=== PATIENT | female | born 1940 ===

== ENCOUNTER 2016-07-31 14:09 | Emergency (ER) | payer MEDICARE ==
[2016-07-31 14:27] VITALS: RESP 20; TEMP 100.3; O2SAT 98
[2016-07-31] MEDS ORDERED: Albuterol-Ipratrop 3 mg / 0.5 (3 ml) UD INH STA ×2 (14:44→16:59)
[2016-07-31] MEDS ORDERED: Albuterol-Ipratrop 3 mg / 0.5 (3 ml) UD ONE (15:00)
--- NOTE | 2016-07-31 15:03 | ED PDOC ---
HPI: SOB/CHF/COPD Chief Complaint (Provider): Shortness of Breath History Per: Patient History/Exam Limitations: no limitations Onset/Duration Of Symptoms: Days, Worse Since (this morning) Current Symptoms Are (Timing): Still Present Current Respiratory Medications: Albuterol, Prednisone (just finished) Associated Symptoms: Chills, Productive Cough. denies: Fever, Chest Pain, Bloody Cough, Heart Racing, Dizziness, Light-headedness, Tingling In Hands Or Face Additional History Per: Patient - Risk Factors PE Risk Factors: Neg: Extremity Immobilization/Fx, Decreased Mobilty /Activity, Recent Major Surgery, Recent Hospitalization, Active Cancer, Previous DVT, Previous PE, CHF <Elena Casper - Last Filed: 07/31/16 17:01> <Laura Amin - Last Filed: 07/31/16 19:17> Time Seen by Provider: 07/31/16 14:32 Chief Complaint (Nursing): Shortness Of Breath Additional Complaint(s): 75 yo F with hx of asthma and chronic cough here with c/o SOB and worsening cough x 1 day. Pt reports being on "multiple pumps" for both prn and maintenance of her asthma. Pt's PMD and validation technician is Dr. Goncalves, whom she saw in his office 1 week ago due to increased cough, at which time she was given Medrol dose pack which she recently finished. Denies chest pain. Productive cough with yellow sputum and SOB not responsive to home albuterol inhaler use. Also c/o associated loose stools x 3 days and chills. Pt denies headache, dizziness, abdominal pain, N/V or any urinary symptoms. ( Elena Casper) Supervising Attending Note - Supervising Attending Note The Documented history was done by the: Physician Sharepoint Manager, Attending Physician The documented physical exam was done by the: Physician Sharepoint Manager, Attending Physician The documented procedures were done by the: Physician Sharepoint Manager, Attending Physician - Attestation: I have personally seen and examined this patient.: Yes I have fully participated in the care of the patient.: Yes I have reviewed all pertinent clinical information, including history, physical exam and plan: Yes <Laura Amin - Last Filed: 07/31/16 19:17> Past Medical History Reviewed: Historical Data, Nursing Documentation, Vital Signs - Medical History PMH: Asthma - Family History Family History: States: Unknown Family Hx <Elena Casper - Last Filed: 07/31/16 17:01> <StanleyLaura beth Alejo - Last Filed: 07/31/16 19:17> Vital Signs: Last Vital Signs Temp 100.3 F H 07/31/16 14:24 Pulse 86 07/31/16 18:58 Resp 20 07/31/16 14:24 BP 130/82 07/31/16 18:58 Pulse Ox 98 07/31/16 18:58 - Home Medications Home Medications: Ambulatory Orders Medication Instructions Recorded Oseltamivir [Tamiflu] 75 mg PO BID #10 cap 07/31/16 Promethazine/Codeine 5 ml PO Q6 PRN #100 ml 07/31/16 [Phenergan/Codeine Oral Syrup] - Allergies Allergies/Adverse Reactions: Allergies Allergy/AdvReac Type Severity Reaction Status Date / Time No Known Allergies Allergy Verified 07/31/16 14:24 Curb-65 Severity Score - CURB-65 Severity Score Confusion: No Respiratory Rate greater than/equal to 30: No Systolic BP <90 or Diastolic BP less than/equal 60mmHg: No Age >64: Yes Curb-65 Score: 1 Percentage 30-day mortality: 2.7% <Elena Casper - Last Filed: 07/31/16 17:01> Wells Criteria for PE - Wells Criteria for Pulmonary Embolism Clinical Signs and Symptoms of DVT: No P.E is #1 Diagnosis, or Equally Likely: No Heart Rate >100: Yes Immobilization at least 3 days;Surgery previous 4 weeks: No Previous, objectively diagnosed PE or DVT: No Hemoptysis: No Malignancy w/treatment within 6 months, or palliative: No Total Score: 1.5 <Elena Casper - Last Filed: 07/31/16 17:01> Review of Systems Constitutional: Positive for: Chills. Negative for: Fever Cardiovascular: Negative for: Chest Pain, Palpitations, Orthopnea, Light Headedness Respiratory: Positive for: Cough, Shortness of Breath, Sputum, Wheezing. Negative for: Hemoptysis Gastrointestinal: Positive for: Diarrhea (loose stools x 3 days). Negative for : Nausea, Vomiting, Abdominal Pain, Constipation Genitourinary Female: Negative for: Dysuria, Frequency, Hematuria Musculoskeletal: Negative for: Neck Pain Skin: Negative for: Rash Neurological: Negative for: Weakness, Numbness, Confusion, Headache, Dizziness <Elena Casper - Last Filed: 07/31/16 17:01> Physical Exam - Reviewed Nursing Documentation Reviewed: Yes Vital Signs Reviewed: Yes - Physical Exam Appears: Positive for: Uncomfortable Head Exam: Positive for: NORMAL INSPECTION Skin: Positive for: Normal Color, Warm, Dry Eye Exam: Positive for: Normal appearance Cardiovascular/Chest: Positive for: Tachycardia. Negative for: Gallop, Murmur Respiratory: Positive for: Decreased Breath Sounds, Accessory Muscle Use, Rhonchi, Wheezing (mild, diffuse). Negative for: Crackles, Rales, Stridor, Respiratory Distress, Plerual Rub Gastrointestinal/Abdominal: Positive for: Bowel Sounds (normal throughout), Soft. Negative for: Tenderness, Guarding, Rebound Extremity: Positive for: Capillary Refill (< 2 sec). Negative for: Pedal Edema , Calf Tenderness Neurologic/Psych: Positive for: Alert, Oriented <Elena Casper - Last Filed: 07/31/16 17:01> - Laboratory Results Result Diagrams: 07/31/16 14:00 07/31/16 14:00 - ECG ECG: Positive for: Interpreted By Me, Viewed By Me ECG Rhythm: Positive for: Normal QRS, Normal ST Segment, Sinus Rhythm. Negative for: ST/T Changes, Nonspecific Changes Rate: 89 O2 Sat by Pulse Oximetry: 98 <Elena Casper - Last Filed: 07/31/16 17:01> - Laboratory Results Result Diagrams: 07/31/16 14:00 07/31/16 14:00 - Radiology X-Ray: Viewed By Me, Read By Radiologist X-Ray Interpretation: No Acute Disease - Progress Re-evaluation Time: 18:44 Condition: Re-examined, Improved <Laura Amin - Last Filed: 07/31/16 19:17> - Progress ED Course And Treament: CBC CMP CXR Rapid Flu Duoneb Solumedrol 125mg IV x 1 1600 Labs wnl Flu pending Reeval at 1700 Symptom improvement. Pt breathing comfortably with no accessary muscle use. Lung exam: improved, but still somewhat decreased breath sounds with mild diffuse wheezing and rhonchi Repeat Duoneb CXR normal Flu pending (Elena Casper) Nebulizer Treatments/Peak Flow - Duonebs Number of Bronchodilator Doses given?: 2 - Steroid Treatment Steroid: IV - Clinical Response Clinical Response: Improved <Laura Amin - Last Filed: 07/31/16 19:17> Disposition - Disposition Disposition Time: 17:03 Patient Signed Over To: Laura Amin Handoff Comments: Labs and CXR wnl. Flu pending. 2nd Duoneb being given now <Elena Casper - Last Filed: 07/31/16 17:01> - Patient ED Disposition Is Patient to be Admitted: No Doctor Will See Patient In The: Office Counseled Patient/Family Regarding: Studies Performed, Diagnosis, Need For Followup - Disposition Disposition: Routine/Home Disposition Time: 18:45 <Laura Amin - Last Filed: 07/31/16 19:17> - Clinical Impression Clinical Impression: Asthma exacerbation, Influenza A - Disposition Referrals: Mehul Goncalves MD [Family Provider] - Condition: GOOD Additional Instructions: Follow up with your PCP in 2-3 days. Take medications as instructed. Prescriptions: Promethazine/Codeine [Phenergan/Codeine Oral Syrup] 5 ml PO Q6 PRN #100 ml PRN Reason: Cough Oseltamivir [Tamiflu] 75 mg PO BID #10 cap Instructions: Influenza (ED), Asthma (ED)
[2016-07-31 16:11] LABS: ALB/GLOB RATIO 1.2 (1.0-2.1); ALKALINE PHOSPHATASE 61 U/L (38-126); ALT/SGPT 39 U/L (9-52); AST/SGOT 23 U/L (14-36); BILIRUBIN,TOTAL 0.5 mg/dl (0.2-1.3); BLOOD UREA NITROGEN 11 mg/dl (7-17); CARBON DIOXIDE 23 mmol/L (22-30); CHLORIDE 99 mmol/L (98-107); GFR AFRICAN-AMERICAN > 60; GLUCOSE,RANDOM 89 mg/dL (65-105); SODIUM 132 mmol/l (132-148); TOTAL PROTEIN 7.1 G/DL (6.3-8.2)
[2016-07-31 16:19] LABS: BASO % 0.6 % (0.0-2.0); EOS % 0.4 % (0.0-4.0); HEMATOCRIT 36.3 % (34.0-47.0); LYMPH # 0.2 K/uL (1.0-4.3); LYMPH % 3.2 % (20.0-40.0); MEAN CELL VOLUME 92.4 fl (81.0-99.0); MEAN CORPUSCULAR HEMOGLOBIN 30.6 pg (27.0-31.0); MEAN CORPUSCULAR HGB CONC 33.1 g/dL (33.0-37.0); MEAN PLATELET VOLUME 7.9 fl (7.2-11.7); MONO # 0.9 K/uL (0.0-0.8); MONO % 17.5 % (0.0-10.0); NEUT # 4.1 K/uL (1.8-7.0); NEUT % 78.3 % (50.0-75.0); NRBC % 0.3 % (0.0-0.0); PLATELET COUNT 209 K/uL (130-400); RED CELL DISTRIBUTION WIDTH 13.5 % (11.5-14.5); WHITE BLOOD COUNT 5.3 K/uL (4.8-10.8)
--- NOTE | 2016-07-31 16:32 | RAD ---
HISTORY: SOB COMPARISON: No prior. TECHNIQUE: Chest PA and lateral FINDINGS: LUNGS: No active pulmonary disease. PLEURA: No significant pleural effusion identified. No pneumothorax apparent. CARDIOVASCULAR: Normal. OSSEOUS STRUCTURES: No significant abnormalities. VISUALIZED UPPER ABDOMEN: Normal. OTHER FINDINGS: None. IMPRESSION: No active disease.
[2016-07-31 17:24] LABS: EOSINOPHIL 1 % (0-7); NEUTROPHIL 81 % (42-75); TOTAL CELLS COUNTED 100
[2016-07-31 19:01] VITALS: BP 130/82; PULSE 86
--- NOTE | 2016-08-01 07:17 | CARD ---
APPROVED REPORT EKG Measurement Heart [id number] <Conclusion> Normal sinus rhythm Normal ECG
== END 2016-07-31 18:56 | disposition home or self-care (01) ==
LOC: H.ER 14:09
DX: J45.901 Unspecified asthma with (acute) exacerbation (principal); R06.02 Shortness of breath; J10.1 Influenza due to other identified influenza virus with other respiratory manifestations
CPT/HCPCS: 71020; 80053; 85025; 87040; 87804; 93005; 94640; 96374; 99283; J2930